=== PATIENT | male | born 2000 | race Caucasian/White ===

== ENCOUNTER 2021-07-11 20:24 | Emergency (ER) | payer MEDICAID, SELFPAY ==
[2021-07-11 20:41] VITALS: BP 126/92; PULSE 87; RESP 14; TEMP 36.9; O2SAT 94; BMI 34.9
--- NOTE | 2021-07-11 21:16 | W.ED.GENADLT ---
HPI - General Adult General: Chief complaint: Psychiatric Symptoms Stated complaint: mental eval/ stress eval Time Seen by Provider: 07/11/21 20:34 History of Present Illness: HPI: [20]yo patient w/ hx of depression BIBA auditory hallucinations. Patient tells me that he has been hearing voices ever since that he has not been taking his aripiprazole injection. Patient tells me due to insurance reasons he is has been unable to take the injections. He is in the process of reobtaining the medicine. Earlier today, patient reports auditory hallucination and voices telling him to harm other people. He tells me that he is coherent and he would not act on the voices. On arrival, the patient is AAOx3 and cooperative with my evaluation. No focal complaints of chest pain, shortness of breath, palpitations, N/V, focal GI/ complaints. Currently denies SI/HI. Onset: acute Duration: ongoing Location: home Severity: moderate Associated symptoms: Deny chest pain, dyspnea, nausea, rash, palpitations or vomiting Review of Systems Const: Denies: fever(s) or chills Eyes: Denies: change in vision ENMT: Denies: mouth pain Card: Denies: chest pain or palpitations Resp: Denies: dyspnea or non-productive cough GI: Denies: abdominal pain, nausea, vomiting or diarrhea : Denies: dysuria Musc: Denies: extremity pain Skin/Breast: Denies: rash or new lesions Neuro: Denies: weakness in extremities Psych: Reports: auditory hallucinations Milton/Lymph: Denies: easy bruising PFSH ED PFSH: Medical History Psychiatric care Schizophrenia Social History Smoking and tobacco status: never smoked Alcohol intake: never Substance/Drug Use: never Physical Exam Const: COMMON NORMALS: alert HENMT: COMMON NORMALS: atraumatic HEAD & SCALP: atraumatic MOUTH: moist mucous membranes not abnormal Eye: COMMON NORMALS: EOMs intact bilaterally and conjunctivae normal CONJUNCTIVA: Yes conjunctivae normal Neck/C-Spine: COMMON NORMALS: full ROM and supple Resp: COMMON NORMALS: normal respiratory effort and clear to auscultation bilaterally AUSCULTATION: clear to auscultation bilaterally Cardio: COMMON NORMALS: regular rate RATE: regular rate GI: COMMON NORMALS: Soft to palpation and non-tender PALPATION: Yes Soft to palpation Extremity: COMMON NORMALS: full ROM Neuro: SENSORIUM/ORIENTATION: Yes alert MOTOR EXAM: No Abnormal motor strength present and Other motor observations present (no focal motor deficits) Psych: COMMON NORMALS: speech normal SPEECH: Yes normal speech MOOD & AFFECT: Yes euthymic mood Course Vital Signs: Vital signs: Vital Signs Temperature 98.4 F 07/11/21 20:41 Pulse Rate 87 07/11/21 20:41 Respiratory Rate 14 07/11/21 20:41 Blood Pressure 126/92 07/11/21 20:41 Pulse Oximetry 94 07/11/21 20:41 MDM - General Adult Medical Decision Making [20]yo patient w/ hx of schizophrenia not on medication, autism spectrum disorder presenting for auditory hallucination. HDS, exam within normal limit Thoughts are linear and organized, and the patient has no VH, SI, or HI. Clinically the patient displays no overt toxidrome; they are well appearing, with low suspicion for toxic ingestion given history and exam. Symptoms unlikely 2/2 anemia, hypothyroidism, infection, or ICH. Workup: CBC, CMP, Lipase, salicylate/tylenol, UDS Lab findings: wnl [10:00pm] On reassessment, labs and workup wnl. Patient is hemodynamically stable with no acute medical complaints. Case discussed with psychiatric provider Dr. Dumont at [facility] psych inpatient who evaluated patient via telepsych and recommended discharge with close follow-up. Dr. Cervantes recommended giving 400mg of IM apripazole prior to discharge I have given patient follow up with our field nurse case manager to be seen by our outpatient behavioral health center for further evaluation of auditory hallucination. Patient aware of a call from our field nurse case manager to schedule for appointment(s) and verbalizes understanding of the importance of following up. Disposition: Discharge. Patient counseled regarding diagnostic impression, treatment plan. Patient given ED strict return precautions to return for continuation, worsening, or development of new symptoms. Instructed to f/u w/ [facility] regarding symptoms today. Patient verbalized understanding. Lab Data : 07/11/21 21:15 07/11/21 21:15 Laboratory Results WBC 7.7 10^3/uL (4.0-10.0) 07/11/21 21:15 RBC 5.16 10^6/uL (4.1-5.3) 07/11/21 21:15 Hgb 15.7 g/dL (11.7-16.6) 07/11/21 21:15 Hct 46.2 % (42.0-52.0) 07/11/21 21:15 MCV 89.5 fl (80-94) 07/11/21 21:15 MCH 30.4 pg (28.0-34.0) 07/11/21 21:15 MCHC 34.0 g/dL (30.0-36.0) 07/11/21 21:15 RDW 12.7 % (12.1-15.1) 07/11/21 21:15 Plt Count 199 10^3/cmm (130-400) 07/11/21 21:15 MPV 10.9 fL (7.4-10.4) H 07/11/21 21:15 Neut % (Auto) 53.1 % 07/11/21 21:15 Lymph % (Auto) 35.6 % 07/11/21 21:15 Tillman % (Auto) 9.4 % 07/11/21 21:15 Eos % (Auto) 1.2 % 07/11/21 21:15 Baso % (Auto) 0.4 % 07/11/21 21:15 Neut # (Auto) 4.11 10^3/uL (1.8-7.7) 07/11/21 21:15 Lymph # (Auto) 2.8 10^3/uL (0.8-4.8) 07/11/21 21:15 Tillman # (Auto) 0.7 10^3/uL (0.2-0.9) 07/11/21 21:15 Eos # (Auto) 0.1 10^3/uL (0.0-0.8) 07/11/21 21:15 Baso # (Auto) 0.0 10^3/uL (0.0-0.1) 07/11/21 21:15 Nucleated RBC % (auto) 0 % 07/11/21 21:15 Nucleated RBCs # 0.0 /100WBC 07/11/21 21:15 Sodium 138 mmol/L (136-145) 07/11/21 21:15 Potassium 3.9 mmol/L (3.5-5.1) 07/11/21 21:15 Chloride 100 mmol/L (98-107) 07/11/21 21:15 Carbon Dioxide 26 mmol/L (22-29) 07/11/21 21:15 Anion Gap 15.9 (5-19) 07/11/21 21:15 BUN 10 mg/dL (6-20) 07/11/21 21:15 Creatinine 0.9 mg/dL (0.7-1.2) 07/11/21 21:15 GFR Calculation 106.5 mL/min (90-130) 07/11/21 21:15 Glucose 77 mg/dL (65-115) 07/11/21 21:15 Calculated Osmolality 284 mOsm/kg (285-295) L 07/11/21 21:15 Calcium 9.6 mg/dL (8.5-10.5) 07/11/21 21:15 Total Bilirubin 0.5 mg/dL (0.15-1.2) 07/11/21 21:15 AST 14 U/L (0-40) 07/11/21 21:15 ALT 21 U/L (0-41) 07/11/21 21:15 Alkaline Phosphatase 101 IU/L (40-130) 07/11/21 21:15 Total Protein 7.8 g/dL (6.6-8.7) 07/11/21 21:15 Albumin 4.7 g/dL (3.5-5.2) 07/11/21 21:15 Globulin 3.1 g/dL (1.3-4.6) 07/11/21 21:15 Lipase 18 U/L (13-60) 07/11/21 21:15 Salicylates < 0.3 mg/dL (3-10) L 07/11/21 21:15 Urine Opiates Screen Negative ng/mL (Negative) 07/11/21 21:35 Acetaminophen < 5.0 ug/mL (10-30) L 07/11/21 21:15 Ur Barbiturates Screen Negative ng/mL (Negative) 07/11/21 21:35 Ur Phencyclidine Scrn Negative ng/mL (Negative) 07/11/21 21:35 Ur Amphetamines Screen Negative ng/mL (Negative) 07/11/21 21:35 U Benzodiazepines Scrn Negative ng/mL (Negative) 07/11/21 21:35 Urine Cocaine Screen Negative ng/mL (Negative) 07/11/21 21:35 U Marijuana (THC) Screen Negative ng/mL (Negative) 07/11/21 21:35 Discharge Plan Discharge Patient Disposition: Home Clinical Impression: Auditory hallucination Condition: Stable Discharge Orders: Discharge ED (Routine); Ordered 07/11/21 Ordered By: Deena Diaz Discharge Diet: Advance as tolerated Discharge Activity: Increase activity as tolerated Activity Restrictions/Additional Instructions: Please come back to the emergency room if you need help, have any hallucinations, or you have any depression or have thoughts about hurting yourself or other people. Our field nurse case manager will have you [facility] with [facility] in the next few days. You would be expected to have a phone call with our field nurse case manager who will put you on the schedule. You can expect a call from us in the next 2-3 days. If you don't hear from us, call us back in the emergency room at [phone]. Coding Level of Care Code ED Technology Administrator for Leonarda Fwlata Exam Comprehensive
[2021-07-11 21:26] LABS: Basophils % 0.4 %; Eosinophils # 0.1 10^3/uL (0.0-0.8); Eosinophils % 1.2 %; Hematocrit 46.2 % (42.0-52.0); Hemoglobin 15.7 g/dL (11.7-16.6); Lymphocytes # 2.8 10^3/uL (0.8-4.8); Lymphocytes % 35.6 %; Mean Corpuscular Hemoglobin 30.4 pg (28.0-34.0); Mean Corpuscular Volume 89.5 fl (80-94); Mean Platelet Volume 10.9 fL (7.4-10.4); Monocytes # 0.7 10^3/uL (0.2-0.9); Monocytes % 9.4 %; Neutrophils # 4.11 10^3/uL (1.8-7.7); Neutrophils % 53.1 %; Nucleated Red Blood Cells % 0 %; Platelet Count 199 10^3/cmm (130-400); Red Blood Count 5.16 10^6/uL (4.1-5.3); Red Cell Distribution Width 12.7 % (12.1-15.1); White Blood Count 7.7 10^3/uL (4.0-10.0)
[2021-07-11 21:48] LABS: Alanine Aminotransferase 21 U/L (0-41); Albumin Level 4.7 g/dL (3.5-5.2); Alkaline Phosphatase 101 IU/L (40-130); Anion Gap 15.9 (5-19); Aspartate Amino Transferase 14 U/L (0-40); Blood Urea Nitrogen 10 mg/dL (6-20); Calcium 9.6 mg/dL (8.5-10.5); Carbon Dioxide 26 mmol/L (22-29); Chloride 100 mmol/L (98-107); Creatinine Clr Calc Pharmacy 152.0012; Globulin 3.1 g/dL (1.3-4.6); Glomerular Filtration Rate 106.5 mL/min (90-130); Glucose 77 mg/dL (65-115); Lipase 18 U/L (13-60); Osmolality Calculated 284 mOsm/kg (285-295); Potassium 3.9 mmol/L (3.5-5.1); Sodium 138 mmol/L (136-145); Total Bilirubin 0.5 mg/dL (0.15-1.2); Total Protein 7.8 g/dL (6.6-8.7)
[2021-07-11 21:50] LABS: Amphetamines Screen Urine Negative (Negative); Barbiturates Screen Urine Negative (Negative); Benzodiazepines Screen Urine Negative (Negative); Cocaine Screen Urine Negative (Negative); Opiate Screen Urine Negative (Negative); PCP Screen Urine Negative (Negative); THC Screen Urine Negative (Negative)
[2021-07-11 21:52] LABS: Acetaminophen < 5.0 ug/mL (10-30); Salicylate < 0.3 mg/dL (3-10)
[2021-07-11] MEDS: ARIPiprazole Maintena 400 MG IM (22:26)
[2021-07-11 22:33] VITALS: BP 125/87; PULSE 96; RESP 13; O2SAT 95
[2021-07-11 22:57] VITALS: BP 128/78; PULSE 88; RESP 18; O2SAT 98
--- NOTE | 2021-07-19 14:04 | DCPLANNER ---
fast food manager had message to speak with patient about getting an injection at [facility] [place]. fast food manager called patient, unable to speak with patient at this time.
== END 2021-07-11 22:58 | disposition home or self-care (01) ==
PROVIDERS: Emergency Provider Emergency Medicine
DX: R44.0 Auditory hallucinations (principal)
CPT/HCPCS: 80053; 80306; 80307; 83690; 85025; 96372; 99283

== ENCOUNTER 2021-08-28 13:45 | Emergency (ER) | payer MEDICAID, SELFPAY ==
[2021-08-28 13:52] VITALS: BP 136/87; PULSE 114; RESP 18; TEMP 35.6; O2SAT 96; BMI 27.3
--- NOTE | 2021-08-28 14:30 | ED.C_ITS ---
HPI - Psych General: Chief Complaint: Psychiatric Symptoms Stated Complaint: autistic mood swings Time Seen by Provider: 08/28/21 14:24 History of Present Illness: 21-year-old presents due to needing a mood stabilizer . Patient states he is not suicidal homicidal. States he is norm ally on a mood stabilizer and he needs a shot of it however he does not know the name of the medication or what dose she gets. There is no recorded psychoactive substance in the chart. Patient states he is able to care for himself but is unsure who he normally follows up with. Review of Systems Narrative: - CONSTITUTIONAL: Denies weight loss, fever and chills. - HEENT: Denies changes in vision and hearing. - RESPIRATORY: Denies SOB and cough. - CV: Denies palpitations and CP. - GI: Denies abdominal pain, nausea, vomiting and diarrhea. - : Denies dysuria and urinary frequency. - MSK: Denies myalgia and joint pain. - SKIN: Denies rash and pruritus. - NEUROLOGICAL: Denies headache, weakness, numbness and syncope. - PSYCHIATRIC: Denies suicidal ideation PFS ED PFSH: Medical History Psychiatric care Schizophrenia Social History Smoking and tobacco status: never smoked Alcohol intake: never Physical Exam Narrative: EXAM NARRATIVE: - GENERAL: Alert and oriented x 3. No acute distress. Well-nourished. - EYES: EOMI. Anicteric. - HENT: Atraumatic, no C-spine tenderness. Moist mucous membranes. No scleral icterus. No cervical lymphadenopathy. - LUNGS: Clear to auscultation bilaterally. No accessory muscle use. Equal lung sounds bilaterally. No respiratory distress. - CARDIOVASCULAR: Regular rate and rhythm. No murmur. No JVD. - ABDOMEN: Soft, non-tender and non-distended. Negative CVA tenderness bilaterally, no rebound or guarding, negative Foster sign. No palpable masses. - EXTREMITIES: No edema. Non-tender. - SKIN: No rashes or lesions. Warm. - NEUROLOGIC: No meningismus or focal neurological deficits. CN II-XII grossly intact. - PSYCHIATRIC: Cooperative. Appropriate mood and affect. Course Vital Signs: Vital signs: Vital Signs Temperature 96.1 F L 08/28/21 13:52 Pulse Rate 114 H 08/28/21 13:52 Respiratory Rate 18 08/28/21 13:52 Blood Pressure 136/87 08/28/21 13:52 Pulse Oximetry 96 08/28/21 13:52 [facility] - Psych Medical Decision Making Seen [id number] presents with stabilizer injection. Initially patient does not remember what he is on. Further review of chart does reveal that he was previously given aripiprazole 400 mg IM. This was provided to him today. Hadley nt denies any suicidal homicidal ideation. At this time do not believe he would be a danger to himself or others. At this time I believe patient would be safe for discharge and outpatient follow-up. Return precautions provided. Plan was reviewed with the patient who expressed understanding. Questions answered. Patient will follow up with PCP. Patient discharged in stable condition. Discharge Plan Discharge Patient Disposition: Home Clinical Impression: Mood disorder Condition: Stable Prescriptions: No Action azithromycin 250 mg tablet See Rx Instructions PO .COMPLEX Qty: 6 0RF Rx Instructions: take 500 mg today (day 1), then 250 mg for 4 days (days 2-5) PO methylprednisolone [Medrol (Mack)] 4 mg tablets,dose pack See Rx Instructions PO PER PKG DIR Qty: 21 0RF Rx Instructions: PO PER PKG DIR Discharge Orders: Discharge ED (Routine); Ordered 08/28/21 Ordered By: Herbert Wang Referrals: Devin Dumont MD [Physician] - 1-3 days Patient Instructions: Mood Disorders (ED), Opioid Safety Coding Level of Care Code ED Director Of Intercollegiate Athletics for Leonarda Kumar
--- NOTE | 2021-08-28 15:30 | PC.NURSE ---
Patient here for his monthly mood injection per patient, denies any other needs or concerns.
[2021-08-28] MEDS: ARIPiprazole Maintena 400 MG IM (15:49)
[2021-08-28 16:02] VITALS: RESP 18
== END 2021-08-28 16:03 | disposition home or self-care (01) ==
PROVIDERS: Emergency Provider Emergency Medicine
DX: F39 Unspecified mood [affective] disorder (principal)
CPT/HCPCS: 96372; 99284

== ENCOUNTER 2021-10-04 00:13 | Emergency (ER) | payer MEDICAID, SELFPAY ==
[2021-10-04 00:51] VITALS: BP 127/68; PULSE 108; RESP 20; TEMP 37; O2SAT 97; BMI 33.3
--- NOTE | 2021-10-04 00:55 | ED_ITS ---
HPI - General Adult General: Chief complaint: General Medical Stated complaint: Needs Medicine PFSH ED PFSH: Medical History Psychiatric care Schizophrenia Social History Smoking and tobacco status: never smoked Alcohol intake: never Course Vital Signs: Vital signs: Vital Signs Temperature 98.6 F 10/04/21 00:51 Pulse Rate 108 H 10/04/21 00:51 Respiratory Rate 20 H 10/04/21 00:51 Blood Pressure 127/68 10/04/21 00:51 Pulse Oximetry 97 10/04/21 00:51 Oxygen Delivery Me thod 10/04/21 00:51 Discharge Plan Discharge Condition: Stable Prescriptions: No Action azithromycin 250 mg tablet See Rx Instructions PO .COMPLEX Qty: 6 0RF Rx Instructions: take 500 mg today (day 1), then 250 mg for 4 days (days 2-5) PO methylprednisolone [Medrol (Mack)] 4 mg tablets,dose pack See Rx Instructions PO PER PKG DIR Qty: 21 0RF Rx Instructions: PO PER PKG DIR Coding Level of Care Code ED Lead Designer for Chg José
--- NOTE | 2021-10-04 01:04 | W.ED.GENADLT ---
HPI - General Adult General: Chief complaint: General Medical Stated complaint: Needs Medicine Time Seen by Provider: 10/04/21 01:04 History of Present Illness: 22-year-old male patient comes in today needing a injection of aripiprazole injection for the treatment of autism and schizophrenia. Patient denies any suicidal or homicidal thoughts. Patient is cooperative. Review of Systems General: Reports: 10 or more systems reviewed and unremarkable except in HPI and below PFSH ED PFSH: Medical History Psychiatric care Schizophrenia Social History Smoking and tobacco status: never smoked Alcohol intake: never Physical Exam Const: COMMON NORMALS: alert HENMT: COMMON NORMALS: normocephalic HEAD & SCALP: normocephalic Resp: COMMON NORMALS: normal respiratory effort Cardio: COMMON NORMALS: regular rate RATE: regular rate Extremity: COMMON NORMALS: normal to inspection Neuro: SENSORIUM/ORIENTATION: Yes alert Skin: COMMON NORMALS: no rashes or lesions noted GENERAL SKIN EXAM: no rashes or lesions noted Course Vital Signs: Vital signs: Vital Signs Temperature 98.6 F 10/04/21 00:51 Pulse Rate 89 10/04/21 01:25 Respiratory Rate 18 10/04/21 01:25 Blood Pressure 128/88 10/04/21 01:25 Pulse Oximetry 98 10/04/21 01:25 Oxygen Delivery Me thod 10/04/21 00:51 MDM - General Adult Medical Decision Making 21-year-old male patient comes in today for injection of his IM Abilify Maintena. Patient had gotten it the last 2 months in the emergency department. Patient is awaiting Medicaid and is unable to get it by other measures. Patient appears nontoxic. Patient appears in no pain. Differential diagnosis includes but not limited to schizophrenia, schizotypal disorder, autism. We are unable to continue with the Abilify injection in the ER per pharmacy restrictions. We have given him 20 mg of Geodon IM and recommended follow-up with web content & social media manager in the morning to discuss other options. Patient and his family both reported understanding. Discharge Plan Discharge Patient Disposition: Home Clinical Impression: Autism disorder Schizophrenia Qualifiers: Schizophrenia type: unspecified Qualified Code(s): F20.9 - Schizophrenia, unspecified Condition: Stable Prescriptions: No Action azithromycin 250 mg tablet See Rx Instructions PO .COMPLEX Qty: 6 0RF Rx Instructions: take 500 mg today (day 1), then 250 mg for 4 days (days 2-5) PO methylprednisolone [Medrol (Mack)] 4 mg tablets,dose pack See Rx Instructions PO PER PKG DIR Qty: 21 0RF Rx Instructions: PO PER PKG DIR Discharge Orders: Discharge ED (Routine); Ordered 10/04/21 Ordered By: Jeff Turner Discharge Activity: Increase activity as tolerated Activity Restrictions/Additional Instructions: Follow-up with primary care regarding other medication options or return in the morning to discuss further with web content & social media manager. Coding Level of Care Code ED Pipe [employer] for Leonarda Kumar
[2021-10-04] MEDS: ziprasidone 20 mg/mL SDV IM (01:12)
[2021-10-04 01:25] VITALS: BP 128/88; PULSE 89; RESP 18; O2SAT 98
--- NOTE | 2021-10-07 09:33 | DCPLANNER ---
mechanical manager had message to help patient with his medications. mechanical manager called phone number [phone], unable to speak with patient at this time, a voicemail was left for patient to return clinical case manager phone call.
== END 2021-10-04 01:26 | disposition home or self-care (01) ==
PROVIDERS: Emergency Provider Nurse Practitioner Family
DX: F84.0 Autistic disorder (principal); F20.9 Schizophrenia, unspecified
CPT/HCPCS: 96372; 99284; J3486

== ENCOUNTER 2021-11-18 18:30 | Emergency (ER) | payer MEDICAID, SELFPAY ==
[2021-11-18 18:36] VITALS: BP 130/87; PULSE 91; RESP 16; TEMP 36.9; O2SAT 98; BMI 32.6
--- NOTE | 2021-11-18 19:01 | ED_ITS ---
HPI - General Adult General: Chief complaint: General Medical Stated complaint: anger issues Time Seen by Provider: 11/18/21 19:00 History of Present Illness: 21-year-old male patient comes in today with increase in anger. Patient has autism and has issues with anger reaction. Patient reports the loss of his mother has increased some distress. Patient lives now with his father. Patient was started on Abilify Maintena which is a long-acting antipsychotic. Patient had received this in the emergency room 1 or 2 times but this facility will not allow it to be given out of the ER due to reimbursement. Patient comes in today due to increased anger requesting injection of Geodon which was given last time. Patient denies any homicidal or suicidal thoughts. Patient just reports difficulty controlling his anger. Review of Systems Psych: Reports: mood swings and irritability [facility] ED PFSH: Medical History Psychiatric care Schizophrenia Social History Smoking and tobacco status: never smoked Alcohol intake: never Physical Exam Const: COMMON NORMALS: alert HENMT: COMMON NORMALS: normocephalic HEAD & SCALP: normocephalic Neck/C-Spine: COMMON NORMALS: full ROM Resp: COMMON NORMALS: normal respiratory effort Extremity: COMMON NORMALS: normal to inspection Neuro: SENSORIUM/ORIENTATION: Yes alert Skin: COMMON NORMALS: no rashes or lesions noted GENERAL SKIN EXAM: no rashes or lesions noted Course Vital Signs: Vital signs: Vital Signs Temperature 98.4 F 11/18/21 19:17 Pulse Rate 88 11/18/21 19:17 Respiratory Rate 15 11/18/21 19:17 Blood Pressure 117/79 11/18/21 19:17 Pulse Oximetry 98 11/18/21 19:17 Oxygen Delivery Me thod 11/18/21 18:36 MDM - General Adult Medical Decision Making 21-year-old male patient comes in today for complaints of increased irritability and anger. Patient has autism spectrum disorder. On exam patient appears alert and oriented. Patient responds appropriately to questions. Patient admits to increased irritability and outbursts. Patient is requesting injection that he got last time to help control his outbursts up until he can get into his behavioral health intensive care unit registered nurse. Differential diagnosis includes adjustment disorder, autism spectrum disorder, schizotypal personality disorder, schizophrenia. Patient was given 20 mg of Geodon IM with recommendations to follow-up with primary care for further treatment. Patient reported understanding and agreed to plan. Discharge Plan Discharge Patient Disposition: Home Clinical Impression: Autism, Anger reaction Condition: Stable Prescriptions: No Action azithromycin 250 mg tablet See Rx Instructions PO .COMPLEX Qty: 6 0RF Rx Instructions: take 500 mg today (day 1), then 250 mg for 4 days (days 2-5) PO methylprednisolone [Medrol (Mack)] 4 mg tablets,dose pack See Rx Instructions PO PER PKG DIR Qty: 21 0RF Rx Instructions: PO PER PKG DIR Discharge Orders: Discharge ED (Routine); Ordered 11/18/21 Ordered By: Jeff Turner Patient Instructions: Autism Spectrum Disorder (DC) Activity Restrictions/Additional Instructions: Follow-up with primary care or behavioral health for further treatment and medications. Return to ER for worsening symptoms or new concerns. Coding Level of Care Code ED Speed Operator for Leonarda Kumar
[2021-11-18] MEDS: ziprasidone 20 mg/mL SDV IM (19:12)
[2021-11-18 19:17] VITALS: BP 117/79; PULSE 88; RESP 15; TEMP 36.9; O2SAT 98
== END 2021-11-18 19:36 | disposition home or self-care (01) ==
PROVIDERS: Emergency Provider Nurse Practitioner Family
DX: R45.4 Irritability and anger (principal); F84.0 Autistic disorder
CPT/HCPCS: 96372; 99284; J3486

== ENCOUNTER 2021-11-23 18:41 | Emergency (ER) | payer MEDICAID, SELFPAY ==
[2021-11-23 18:58] VITALS: BP 140/80; PULSE 111; RESP 16; TEMP 36.9; O2SAT 94; BMI 34.2
--- NOTE | 2021-11-23 19:34 | ED_ITS ---
HPI - General Adult General: Chief complaint: General Medical Stated complaint: Anger Issures Time Seen by Provider: 11/23/21 19:27 Source: patient Mode of arrival: ambulatory Limitations: no limitations History of Present Illness: 21-year-old male states that he has schizophrenia along with some anger issues he supposed to be on a Abilify shot has not gotten follow-up he is seen here 3 days ago giving Geodon is requesting another Geodon he denies any suicidal or homicidal ideations denies any worsening improving factors. Associated symptoms: Deny chest pain, dyspnea, headache(s), nausea, rash or vomiting Review of Systems Const: Denies: fever(s), chills, body aches or change in appetite Eyes: Denies: blurry vision or eye discomfort ENMT: Denies: throat pain or dental pain Card: Denies: chest pain Resp: Denies: dyspnea GI: Denies: abdominal pain, nausea, vomiting or diarrhea : Denies: dysuria Musc: Denies: neck pain or back pain Skin/Breast: Denies: rash Neuro: Denies: headache(s) Psych: Denies: depression Milton/Lymph: Denies: easy bruising All/Imm: Denies: urticaria PFSH ED PFSH: Medical History Psychiatric care Schizophrenia Social History Smoking and tobacco status: never smoked Alcohol intake: never Physical Exam Const: COMMON NORMALS: no acute distress, patient oriented x3 and healthy appearing HENMT: COMMON NORMALS: normocephalic and atraumatic HEAD & SCALP: normocephalic and atraumatic Eye: COMMON NORMALS: Equal, round and reactive pupils present and EOMs intact bilaterally PUPIL: Yes Equal, round and reactive pupils present Neck/C-Spine: COMMON NORMALS: full ROM and supple Chest: COMMONS NORMALS: normal inspection of the chest and normal palpation of entire chest wall Resp: COMMON NORMALS: normal respiratory effort, No retractions, No use of accessory muscles and clear to auscultation bilaterally AUSCULTATION: clear to auscultation bilaterally Cardio: COMMON NORMALS: regular rate, regular rhythm and No murmurs present (Cardio) RATE: regular rate RHYTHM: regular rhythm GI: COMMON NORMALS: Normal to inspection, nondistended, normoactive bowel sounds present, Soft to palpation, non-tender and no masses PALPATION: Yes Soft to palpation Extremity: COMMON NORMALS: normal to inspection and full ROM Neuro: COMMON NORMALS: patient oriented x3, moves all extremities and no focal motor deficits Psych: COMMON NORMALS: mental status grossly normal, Normal thought process present and cooperative THOUGHT PROCESS: Normal thought process present Skin: COMMON NORMALS: no rashes or lesions noted and no wounds GENERAL SKIN EXAM: no rashes or lesions noted Course Vital Signs: Vital signs: Vital Signs Temperature 98.5 F 11/23/21 18:58 Pulse Rate 111 H 11/23/21 18:58 Respiratory Rate 16 11/23/21 18:58 Blood Pressure 140/80 11/23/21 18:58 Pulse Oximetry 94 11/23/21 18:58 Oxygen Delivery Me thod 11/23/21 18:58 MDM - General Adult Medical Decision Making Patient presents here with anger outbursts he is not suicidal not homicidal we will give him a Geodon get him follow-up with [facility] he is stable for discharge. Discharge Plan Discharge Patient Disposition: Home Clinical Impression: Anger reaction Condition: Stable Prescriptions: No Action azithromycin 250 mg tablet See Rx Instructions PO .COMPLEX Qty: 6 0RF Rx Instructions: take 500 mg today (day 1), then 250 mg for 4 days (days 2-5) PO methylprednisolone [Medrol (Mack)] 4 mg tablets,dose pack See Rx Instructions PO PER PKG DIR Qty: 21 0RF Rx Instructions: PO PER PKG DIR Discharge Orders: Discharge ED (Routine); Ordered 11/23/21 Ordered By: Nichole Brice Discharge Diet: Advance as tolerated Discharge Activity: Resume usual activity Coding Level of Care Code ED Breaker Unit Assembler for Chg Fwd Exam Comprehensive
[2021-11-23] MEDS: ziprasidone 20 mg/mL SDV IM (19:54)
--- NOTE | 2021-11-24 09:27 | DCPLANNER ---
Addendum entered by Maria Antonia Storey 11/24/21 11:44: senior care manager received the following message from Dilcia at [facility] regarding follow up appointment: I spoke to Larn and mom yesterday and he is coming in for walk in. Original Note: senior care manager had message to schedule a follow up appointment for patient with [facility]. senior care manager sent patients information to Dilcia Henderson at [facility], quality assurance coordinator. Patients information will be printed and reviewed. Clinic will call patient with appointment information.
== END 2021-11-23 20:37 | disposition home or self-care (01) ==
PROVIDERS: Emergency Provider Emergency Medicine
DX: R45.4 Irritability and anger (principal)
CPT/HCPCS: 96372; 99284; J3486

== ENCOUNTER 2022-02-17 20:45 | Inpatient (IN) | payer MEDICAID, SELFPAY ==
[2022-02-17 20:46] VITALS: BP 143/81; PULSE 108; RESP 20; TEMP 36.8; O2SAT 98; BMI 32.3
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
[2022-02-17 21:32] LABS: Basophils % 0.6 %; Eosinophils # 0.1 10^3/uL (0.0-0.8); Hemoglobin 16.2 g/dL (11.7-16.6); Lymphocytes # 2.1 10^3/uL (0.8-4.8); Lymphocytes % 29.7 %; Mean Corpuscular HGB Conc 34.5 g/dL (30.0-36.0); Mean Corpuscular Hemoglobin 31.3 pg (28.0-34.0); Mean Corpuscular Volume 90.7 fl (80-94); Mean Platelet Volume 10.2 fL (7.4-10.4); Monocytes # 0.4 10^3/uL (0.2-0.9); Monocytes % 5.8 %; Neutrophils % 62.6 %; Nucleated Red Blood Cells % 0 %; Platelet Count 213 10^3/cmm (130-400); Red Blood Count 5.18 10^6/uL (4.1-5.3); Red Cell Distribution Width 12.4 % (12.1-15.1)
[2022-02-17 21:45] LABS: Amphetamines Screen Urine Negative (Negative); Barbiturates Screen Urine Negative (Negative); Benzodiazepines Screen Urine Negative (Negative); Cocaine Screen Urine Negative (Negative); Opiate Screen Urine Negative (Negative); PCP Screen Urine Negative (Negative); THC Screen Urine Negative (Negative)
[2022-02-17 21:52] LABS: Alanine Aminotransferase 27 U/L (0-41); Albumin Level 4.6 g/dL (3.5-5.2); Alcohol Level 63 mg/dL (0-10); Alkaline Phosphatase 119 U/L (40-130); Anion Gap 16.6 (5-19); Aspartate Amino Transferase 22 U/L (0-40); Blood Urea Nitrogen 9 mg/dL (6-20); Calcium 9.5 mg/dL (8.5-10.5); Carbon Dioxide 27 mmol/L (22-29); Chloride 104 mmol/L (98-107); Glomerular Filtration Rate 83.7 mL/min (90-130); Glucose 94 mg/dL (65-115); Osmolality Calculated 296 mOsm/kg (285-295); Potassium 3.6 mmol/L (3.5-5.1); Sodium 144 mmol/L (136-145); Total Bilirubin 0.3 mg/dL (0.15-1.2); Total Protein 7.6 g/dL (6.6-8.7)
[2022-02-17 21:53] LABS: Acetaminophen < 5.0 ug/mL (10-30); Salicylate < 0.3 mg/dL (3-10)
[2022-02-17 22:32] LABS: Thyroid Stimulating Hormone 1.41 uIU/mL (0.27-4.20)
[2022-02-17 23:42] VITALS: BP 119/87; PULSE 112; RESP 17; TEMP 36.8; O2SAT 96
[2022-02-18] MEDS: acetaminophen 325 mg Tablet 650 MG PO ×2 (09:00→19:46)
[2022-02-18 14:00] VITALS: RESP 18
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
[2022-02-18] MEDS: ibuprofen 600 mg Tablet PO (18:10)
[2022-02-18] MEDS: paliperidone ER 3 mg Tablet PO (19:46)
[2022-02-18 20:27] VITALS: BP 118/83; PULSE 78; RESP 16; TEMP 37; O2SAT 99
[2022-02-19 06:00] VITALS: RESP 18
[2022-02-19 14:00] VITALS: BP 109/69; PULSE 122; RESP 16; TEMP 36.6; O2SAT 91
--- NOTE | 2022-02-19 18:35 | P.NPUPN_ITS ---
Subjective NPU Subjective: Patient attended today reporting that he is feeling better now that he had Dr. Espinosa and started the medication and that he was no longer having hallucinations. He denied having difficulties or negative thoughts about his father. He denied any side effects to the medication. He reports his father identifies that he is doing better as well. We agreed to reach out to dad to talk about discharge planning. Mental Status Exam MSE Comments: This is an overweight was obese white male in hospital scrubs with limited grooming but adequate eye contact. No abnormal movements. Cooperative with exam in no acute distress.. His speech was decreased rate and volume with some dysarthria. Mood described as better, affect appeared euthymic. His thought process was linear logical and goal-directed. His thought content: Patient denied suicidal or homicidal ideation. He reported history of paranoia but no guardedness or signs of delusions noted, he denied auditory or visual hallucinations and he did not appear to be responding to internal stimuli. Attention and concentration appear intact and memory appeared reliable but never formally tested. His insight and judgment are impaired/limited. His impulse control was limited. Intellectual ability impaired. Vitals/I&O/Wt Last Vital Signs Temp 98.3 F 02/19/22 20:11 Pulse 108 H 02/19/22 20:11 Resp 16 02/19/22 20:11 BP 121/82 02/19/22 20:11 Pulse Ox 98 02/19/22 20:11 O2 Del Method 02/19/22 20:11 Weight last 48 hrs Weight 98.452 kg Data NPU 02/17/22 21:21 02/17/22 21:21 A&P Assessment and plan (1) Impulse control disorder: (2) Psychotic disorder with hallucinations: (3) Generalized anxiety disorder: (4) Mild cognitive impairment: Plan Candida is a 21-year-old white male with likely intellectual disability who also appears to have a history of anger outburst currently endorsing auditory hallucinations of a command nature that appear to be exacerbated by recent argument with his father. 1. Continue current medication. Started oral Invega 3 mg at night to target hallucinations. Consider SSRI to target MARY. 2. Encourage individual group and milieu therapy 3. Continue to 15-minute checks for safety 4. Recommend sober living treatment at the highest level of care to which the patient is willing to commit 5. Reach out to family to explore discharge possibilities. Involuntary Hold Information 96 Hour Hold: 96 Hour Involuntary Admission: Yes 96 Hour Hold Ending Date: 02/23/22 96 Hour Hold Ending Time: 22:17 Attestations NPU Medical Necessity Statement*: Inpatient hospitalization is medically necessary and the clinically appropriate invention at this time. We will monitor medications and make changes as indicated. Likely length of stay is 1-3 days. Coding Level of Care Code Acute Ware Carrier for Leonarda Fwd Diagnoses Impulse control disorder F63.9 Psychotic disorder with hallucinations F29 Generalized anxiety disorder F41.1 Mild cognitive impairment G31.84
[2022-02-19 20:11] VITALS: BP 121/82; PULSE 108; RESP 16; TEMP 36.8; O2SAT 98
[2022-02-19] MEDS: paliperidone ER 3 mg Tablet PO (21:11)
[2022-02-20 06:00] VITALS: RESP 18
[2022-02-20 11:59] VITALS: RESP 18
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
[2022-02-20] MEDS: paliperidone ER 3 mg Tablet PO (13:25)
== END 2022-02-20 13:36 | disposition home or self-care (01) | DRG 885 ==
LOC: ER 22:22 → NP 23:21
PROVIDERS: Emergency Medicine; Admitting Provider Psychiatry & Neurology Psychiatry; Emergency Provider Emergency Medicine; Visit Provider Psychiatry & Neurology Psychiatry
DX: F20.9 Schizophrenia, unspecified (principal); Z91.128 Patient's intentional underdosing of medication regimen for other reason; Z88.0 Allergy status to penicillin; F63.9 Impulse disorder, unspecified; F41.1 Generalized anxiety disorder; G31.84 Mild cognitive impairment of uncertain or unknown etiology
CPT/HCPCS: 73552; 73590; 80053; 80306; 80307; 84443; 85025; 97150; 97165; 99285

== ENCOUNTER 2022-04-02 20:40 | Inpatient (IN) | payer MEDICAID, SELFPAY ==
[2022-04-02 20:43] VITALS: BP 129/79; PULSE 106; RESP 18; TEMP 36.8; O2SAT 96; BMI 26.5
[2022-04-02 20:51] VITALS: BP 129/79; PULSE 106; RESP 18; TEMP 36.8; O2SAT 98
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
[2022-04-02 21:39] LABS: Basophils % 0.4 %; Eosinophils # 0.1 10^3/uL (0.0-0.8); Eosinophils % 1.1 %; Hematocrit 45.5 % (42.0-52.0); Hemoglobin 15.5 g/dL (11.7-16.6); Lymphocytes # 2.1 10^3/uL (0.8-4.8); Lymphocytes % 29.5 %; Mean Corpuscular HGB Conc 34.1 g/dL (30.0-36.0); Mean Corpuscular Hemoglobin 30.6 pg (28.0-34.0); Mean Corpuscular Volume 89.9 fl (80-94); Mean Platelet Volume 11.3 fL (7.4-10.4); Monocytes # 0.5 10^3/uL (0.2-0.9); Monocytes % 6.8 %; Neutrophils # 4.38 10^3/uL (1.8-7.7); Neutrophils % 61.8 %; Nucleated Red Blood Cells % 0 %; Platelet Count 204 10^3/cmm (130-400); Red Blood Count 5.06 10^6/uL (4.1-5.3); Red Cell Distribution Width 12.4 % (12.1-15.1); White Blood Count 7.1 10^3/uL (4.0-10.0)
[2022-04-02 21:52] LABS: Alanine Aminotransferase 31 U/L (0-41); Albumin Level 4.4 g/dL (3.5-5.2); Alkaline Phosphatase 103 U/L (40-130); Aspartate Amino Transferase 18 U/L (0-40); Blood Urea Nitrogen 8 mg/dL (6-20); Calcium 9.8 mg/dL (8.5-10.5); Carbon Dioxide 21 mmol/L (22-29); Chloride 102 mmol/L (98-107); Globulin 2.2 g/dL (1.3-4.6); Glomerular Filtration Rate 83.7 mL/min (90-130); Glucose 85 mg/dL (65-115); Osmolality Calculated 288 mOsm/kg (285-295); Sodium 140 mmol/L (136-145); Total Bilirubin 0.3 mg/dL (0.15-1.2); Total Protein 6.6 g/dL (6.6-8.7)
[2022-04-02 22:07] LABS: Acetaminophen < 5.0 ug/mL (10-30); Salicylate < 0.3 mg/dL (3-10)
[2022-04-03 00:32] LABS: Add Urine Microscopic? YES; Amphetamines Screen Urine Negative (Negative); Barbiturates Screen Urine Negative (Negative); Benzodiazepines Screen Urine Negative (Negative); Bilirubin Urine Neg (Negative); Blood Urine Neg (Negative); Cocaine Screen Urine Negative (Negative); Glucose Urine UA Norm (Normal); Ketones Urine Negative (Negative); Leukocyte Esterase Urine Negative (Negative); Nitrate Urine Negative (Negative); Opiate Screen Urine Negative (Negative); PCP Screen Urine Negative (Negative); Protein Urine Trace (Negative); Specific Gravity, Urine 1.025 (1.005-1.030); THC Screen Urine Negative (Negative); Urine Appearance Clear (CLEAR); Urine Color Yellow (Yellow); Urobilinogen Urine 4 mg/dL (Negative); pH Urine 5 (5-7)
[2022-04-03 00:33] LABS: Mucus Urine 1+ /hpf; RBC Urine 0-4 /hpf (0-2); Squamous Epithelial Cell Urine 0-4 /hpf (0-5); WBC Urine 0-4 /hpf (0-5)
[2022-04-03 00:34] LABS: Add Urine Culture? No; Calcium Oxalate Crystals Urine RARE /hpf; Hyaline Casts Urine 0-4 /lpf
[2022-04-03 01:19] LABS: SARS Covid-2 Antigen negative (Negative)
--- NOTE | 2022-04-03 03:27 | ECG_ITS ---
[facility] Test Date: 2022-04-03 Pat Name: Duarte Joyce Department: Room: Gender: Male [employer]: : 2000 Requested By: Honorio Magaña Order Number: [id number] Darisuz MD: Nel Whitten M.D. Measurements Intervals [place] Rate: 78 P: 37 [place]: 154 QRS: 33 QRSD: 99 T: 76 QT: 363 QTc: 414 Interpretive Statements SINUS RHYTHM WITH SINUS ARRHYTHMIA NONSPECIFIC T-WAVE ABNORMALITY Compared to ECG 08/30/2017 22:21:37 T-wave abnormality now present Sinus tachycardia no longer present Electronically Signed On 04-03-2022 8:48:52 RADIO ENGINEER by Nel Whitten M.D. [email or web address]
[2022-04-03 03:47] LABS: Creatine Phosphokinase 176 U/L (39-308); Free T4 Free Thyroxine 1.46 ng/dL (0.82-1.77); Thyroid Stimulating Hormone 1.81 uIU/mL (0.27-4.20)
[2022-04-03 03:48] LABS: Alcohol Level < 10 mg/dL (0-10)
[2022-04-03 08:43] VITALS: BP 107/69; PULSE 94; RESP 14; O2SAT 92
[2022-04-03] MEDS: paliperidone ER 3 mg Tablet 6 MG PO (14:02)
[2022-04-04 06:00] VITALS: BP 100/62; PULSE 69; RESP 16; TEMP 36.2; O2SAT 95
[2022-04-04 10:27] VITALS: BP 107/78; PULSE 94; RESP 16; O2SAT 97
[2022-04-04 13:06] VITALS: BP 117/69; PULSE 85; RESP 17; O2SAT 94
--- NOTE | 2022-04-04 14:22 | PC.NURSE ---
REPORT CALLED TO [facility] IN NPU.
[2022-04-04 14:34] VITALS: BP 124/83; PULSE 100; RESP 18; TEMP 36.6; O2SAT 95
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
[2022-04-04 20:26] VITALS: BP 120/81; PULSE 103; RESP 16; TEMP 36.6; O2SAT 96
[2022-04-04] MEDS: paliperidone ER 3 mg Tablet PO (20:32)
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
[2022-04-05 14:00] VITALS: BP 123/78; PULSE 103; RESP 20; TEMP 36.6; O2SAT 98
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
[2022-04-05] MEDS: paliperidone ER 3 mg Tablet PO (17:59)
[2022-04-05 19:37] VITALS: BP 119/82; PULSE 97; RESP 17; TEMP 36.7; O2SAT 96
[2022-04-05] MEDS: paliperidone ER 3 mg Tablet 6 MG PO (20:55)
[2022-04-06 14:00] VITALS: BP 117/80; PULSE 109; RESP 17; TEMP 36.6; O2SAT 96
[2022-04-06] MEDS: hyDROXYzine 25 mg Capsule 50 MG PO (15:13)
--- NOTE | 2022-04-06 19:19 | W.PM.NPUPNS ---
Subjective NPU Subjective: Patient presented today reporting that he is doing fine on the increased Invega. He reported that he has been a little tired but he does not know if that is from the medication or being somewhat bored here on the unit. He has not spoken to family since he came in here and does not know what his father's position on him coming home is. We discussed working with the treatment team to possibly get him case management and to possibly consider the long-acting injectable. Mental Status Exam MSE Comments: This is an overweight white male in hospital scrubs with limited grooming but adequate eye contact. No abnormal movements except for psychomotor retardation. Cooperative with exam in no acute distress. His speech was decreased rate and volume with some dysarthria. Mood described as tired, affect appeared subdued. His thought process was linear.. His thought content: Patient denied suicidal or homicidal ideation. He reported history of paranoia but no guardedness or signs of delusions noted, he denied auditory or visual hallucinations and he did not appear to be responding to internal stimuli. Attention and concentration appear intact and memory appeared reliable but none were formally tested. His insight and judgment are limited. His impulse control was limited. Intellectual ability impaired. Vitals/I&O/Wt Last Vital Signs Temp 98.7 F 04/06/22 21:25 Pulse 100 04/06/22 21:25 Resp 16 04/06/22 21:25 BP 99/66 04/06/22 21:25 Pulse Ox 95 04/06/22 21:25 O2 Del Method 04/06/22 21:25 Data NPU 04/02/22 21:04 04/02/22 21:04 A&P Assessment and plan (1) Impulse control disorder: (2) Psychotic disorder with hallucinations: (3) Generalized anxiety disorder: (4) Mild cognitive impairment: Nitin Candida is a 21-year-old white male with likely intellectual disability who also appears to have a history of anger outburst currently endorsing auditory hallucinations of a command nature that appear to be exacerbated by recent argument with his father. 1. Continue current medication. Increased Invega to 6 mg p.o. daily. We will explore the long-acting injectable prior to discharge. 2. Encourage individual group and milieu therapy 3. Continue to 15-minute checks for safety 4. Recommend sober living treatment at the highest level of care to which the patient is willing to commit 5. Obtain collateral information from family. Involuntary Hold Information 96 Hour Hold: 96 Hour Involuntary Admission: No Attestations NPU Medical Necessity Statement*: Inpatient hospitalization is medically necessary and the clinically appropriate invention at this time. We will monitor medications and make changes as indicated. Likely length of stay is 2-4 days. Coding Level of Care Code Acute Code for [facility] Fwd Diagnoses Impulse control disorder F63.9 Psychotic disorder with hallucinations F29 Generalized anxiety disorder F41.1 Mild cognitive impairment G31.84
[2022-04-06] MEDS: paliperidone ER 3 mg Tablet 6 MG PO (21:14)
[2022-04-06 21:25] VITALS: BP 99/66; PULSE 100; RESP 16; TEMP 37.1; O2SAT 95
--- NOTE | 2022-04-07 11:52 | W.PM.NPUPNS ---
Subjective NPU Subjective: Patient presented today reporting that he had spoken to his dad and his dad talked about the possibility of him coming home tomorrow. We discussed's reaching out to his dad and finding out what kind of adherence they feel they have with the medication and exploring whether the long-acting injectable should be administered before discharge or whether the family and he think about that. We discussed the possibility of discharge tomorrow if dad is open to him returning. Mental Status Exam MSE Comments: This is an overweight white male in hospital scrubs with limited grooming but adequate eye contact. No abnormal movements except for psychomotor retardation. Cooperative with exam in no acute distress. His speech was decreased rate and volume with some dysarthria. Mood described as tired but better, affect appeared subdued. His thought process was linear.. His thought content: Patient denied suicidal or homicidal ideation. He reported history of paranoia but no guardedness or signs of delusions noted, he denied auditory or visual hallucinations and he did not appear to be responding to internal stimuli. Attention and concentration appear intact and memory appeared reliable but none were formally tested. His insight and judgment are limited. His impulse control was limited. Intellectual ability impaired. Vitals/I&O/Wt Last Vital Signs Temp 98.7 F 04/06/22 21:25 Pulse 100 04/06/22 21:25 Resp 16 04/06/22 21:25 BP 99/66 04/06/22 21:25 Pulse Ox 95 04/06/22 21:25 O2 Del Method 04/06/22 21:25 Data NPU 04/02/22 21:04 04/02/22 21:04 A&P Assessment and plan (1) Impulse control disorder: (2) Psychotic disorder with hallucinations: (3) Generalized anxiety disorder: (4) Mild cognitive impairment: Nitin Candida is a 21-year-old white male with likely intellectual disability who also appears to have a history of anger outburst currently endorsing auditory hallucinations of a command nature that appear to be exacerbated by recent argument with his father. 1. Continue current medication. Increased Invega to 6 mg p.o. daily. We will explore the long-acting injectable prior to discharge. 2. Encourage individual group and milieu therapy 3. Continue to 15-minute checks for safety 4. Recommend sober living treatment at the highest level of care to which the patient is willing to commit 5. Obtain collateral information from family. Involuntary Hold Information 96 Hour Hold: 96 Hour Involuntary Admission: Yes 96 Hour Hold Ending Date: 02/23/22 96 Hour Hold Ending Time: 22:17 Attestations NPU Medical Necessity Statement*: Inpatient hospitalization is medically necessary and the clinically appropriate invention at this time. We will monitor medications and make changes as indicated. Likely length of stay is 1-3 days. Coding Level of Care Code Acute Code for [facility] Fwd Diagnoses Impulse control disorder F63.9 Psychotic disorder with hallucinations F29 Generalized anxiety disorder F41.1 Mild cognitive impairment G31.84
[2022-04-07 14:00] VITALS: BP 119/83; PULSE 113; RESP 16; TEMP 36.6; O2SAT 96
[2022-04-07] MEDS: paliperidone ER 3 mg Tablet 6 MG PO (20:10)
[2022-04-07 21:29] VITALS: BP 111/73; PULSE 116; RESP 17; TEMP 36.9; O2SAT 96
--- NOTE | 2022-04-08 12:20 | DCPLANNER ---
late entry - community relations advisor was asked to look for psych placement for patient. fruit coordinator called and faxed patients information to the following facilities: [facility] - 004 - [facility] - won't have him - to aggressive [facility] = 42 - left voicemail [facility] - 42 - has beds - 0330 wanted more labs at 0600 faxed updated labs [facility] - 0044 - [facility] - has bed - declined at 0340 for being to aggressive [facility] - call back for bed availability [facility] - 51 - has bed - information faxed - facility declined to being aggressive [place] - to [facility] - 52 - [facility] might have bed [facility] - 0055 - [facility] might have beds - faxed information at [phone] [facility] - 0102 - has 1 bed, but need to use it for their own ER [facility] - 0057 - [facility] - has bed [facility] - will not accept due to patient being aggressive
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
[2022-04-08 14:00] VITALS: BP 119/77; PULSE 97; RESP 16; TEMP 36.5; O2SAT 95
[2022-04-08 14:13] VITALS: BP 111/73; PULSE 116; RESP 17; TEMP 36.9; O2SAT 96
--- NOTE | 2022-04-08 15:05 | PC.NURSE ---
Discharge information and medications reviewed with patient. He verbalized his understanding. Pt denied suicidal/homicidal thoughts and hallucinations at this time. He stated he felt ready to go home. When pt's father arrived to pick him up, with pt's permission, the pt's discharge information was reviewd, including his pending appointment and his medication. Questions were answered and the father verbalized his understanding. Pt left ambulatory; belongings returned.
== END 2022-04-08 15:03 | disposition home or self-care (01) | DRG 886 ==
LOC: ER 04-03 14:36 → ER IP 04-03 18:01 → NP 04-04 15:19
PROVIDERS: Emergency Medicine; Family Medicine; Admitting Provider Psychiatry & Neurology Psychiatry; Emergency Provider Family Medicine; Visit Provider Psychiatry & Neurology Psychiatry
DX: F63.9 Impulse disorder, unspecified (principal); F25.9 Schizoaffective disorder, unspecified; F41.1 Generalized anxiety disorder; G31.84 Mild cognitive impairment of uncertain or unknown etiology; F17.290 Nicotine dependence, other tobacco product, uncomplicated
CPT/HCPCS: 80053; 80306; 80307; 81001; 82550; 84439; 84443; 85025; 87426; 93005; 97150; 97165; 99238; 99285

== ENCOUNTER 2022-06-04 00:48 | Emergency (ER) | payer MEDICAID, SELFPAY ==
[2022-06-04 00:55] VITALS: BP 132/57; PULSE 117; RESP 18; TEMP 36.6; O2SAT 96; BMI 21.5
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
--- NOTE | 2022-06-09 13:55 | DCPLANNER ---
Addendum entered by Maria Antonia Storey 06/17/22 09:00: Patient had a follow up appointment scheduled with Dr. Angulo - patient did not attend appointment. Original Note: automotive sales manager called patient due to no primary care physician - patients father stated that he would like patient set up with a primary care physician. automotive sales manager called [facility], gave clinic patients information. A follow up appointment was scheduled for May at 2:[address] Angulo. automotive sales manager gave patients dad the appointment information.
== END 2022-06-04 01:10 | disposition home or self-care (01) ==
PROVIDERS: Emergency Provider Nurse Practitioner Family; PCP Family Medicine
DX: S80.812A Abrasion, left lower leg, initial encounter (principal); S00.83XA Contusion of other part of head, initial encounter; Y04.2XXA Assault by strike against or bumped into by another person, initial encounter; F17.290 Nicotine dependence, other tobacco product, uncomplicated
CPT/HCPCS: 99282

== ENCOUNTER 2022-07-23 03:05 | Emergency (ER) | payer MEDICAID, SELFPAY ==
[2022-07-23 03:26] VITALS: BP 129/83; PULSE 89; RESP 16; TEMP 36.9; O2SAT 99
--- NOTE | 2022-07-23 03:28 | ED_ITS ---
HPI - General Adult General: Chief complaint: General Medical Stated complaint: sore throat Time Seen by Provider: 07/23/22 03:09 Source: patient Mode of arrival: ambulatory Limitations: no limitations History of Present Illness: States [id number] male he noticed his uvula has been tender and sore and is enlarged. Denies any difficulty swallowing denies any fever rates pain a 2 out of 10 currently denies any sick contacts or cough. Associated symptoms: Deny chest pain, dyspnea, headache(s), nausea, rash or vomiting Review of Systems Const: Denies: fever(s), chills, body aches or change in appetite Eyes: Denies: eye discomfort ENMT: Reports: uvular edema; Denies: throat pain or dental pain Card: Denies: chest pain Resp: Denies: dyspnea GI: Denies: abdominal pain, nausea, vomiting or diarrhea Musc: Denies: neck pain or back pain Skin/Breast: Denies: rash Neuro: Denies: headache(s) PFS ED PFSH: Medical History Psychiatric care Schizophrenia Social History Smoking and tobacco status: current every day smoker e-cigarettes E-Cigarette Details: vaporizer device Alcohol intake: current Alcohol intake frequency: 0-2 Drinks per Day Alcohol type: hard liquor Substance/Drug Use: current Substance/Drug use frequency: daily Physical Exam Const: COMMON NORMALS: no acute distress, average body habitus and patient oriented x3 HENMT: COMMON NORMALS: normocephalic and atraumatic HEAD & SCALP: normocephalic and atraumatic THROAT: uvular edema OTHER: Large uvula with slight erythema no pus pockets or uvular deviation Eye: COMMON NORMALS: conjunctivae normal CONJUNCTIVA: Yes conjunctivae normal Neck/C-Spine: COMMON NORMALS: supple Chest: COMMONS NORMALS: normal inspection of the chest Resp: COMMON NORMALS: normal respiratory effort Cardio: COMMON NORMALS: regular rate RATE: regular rate GI: INSPECTION: Yes normal to inspection Extremity: COMMON NORMALS: normal to inspection Neuro: COMMON NORMALS: patient oriented x3 Psych: COMMON NORMALS: mental status grossly normal Skin: COMMON NORMALS: no rashes or lesions noted GENERAL SKIN EXAM: no rashes or lesions noted [facility] - General Adult Medical Decision Making Patient presents here with enlarged slightly inflamed uvula minimal erythema no pus pockets no uvular deviation likely mild uvulitis we will place him on anti- inflammatories give him a shot of Decadron here. Discharge Plan Discharge Patient Disposition: Home Clinical Impression: Uvulitis Condition: Stable Prescriptions: New naproxen [Naprosyn] 500 mg tablet 500 mg PO BID PRN (Reason: pain) Qty: 20 0RF No Action paliperidone 3 mg Tablet Extended Release 24 Hr 6 mg PO BEDTIME 30 Days Qty: 60 1RF Discharge Orders: Discharge ED (Routine); Ordered 07/23/22 Ordered By: Nichole Brice Referrals: Ananth Rivera MD [Primary Care Provider] - 1-3 days Discharge Diet: Advance as tolerated Discharge Activity: Resume usual activity Patient Instructions: Uvulitis (ED) Coding Level of Care Code ED Food Service Cashier for Lenoarda Kumar
[2022-07-23] MEDS: dexamethasone 10 mg/mL INJ IM (03:58)
[2022-07-23] MEDS: ketorolac 30 mg/mL INJ IM (03:58)
== END 2022-07-23 04:18 | disposition home or self-care (01) ==
PROVIDERS: Emergency Provider Emergency Medicine; PCP Family Medicine
DX: K12.2 Cellulitis and abscess of mouth (principal); F17.290 Nicotine dependence, other tobacco product, uncomplicated
CPT/HCPCS: 96372; 99284; J1100; J1885

== ENCOUNTER 2022-11-29 11:34 | Emergency (ER) | payer MEDICAID, SELFPAY ==
[2022-11-29 11:46] VITALS: BP 100/76; PULSE 126; TEMP 37.2; O2SAT 93; BMI 34.3
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
--- NOTE | 2022-11-29 12:17 | PC.PHAR ---
pt states he takes no medications-[facility] states they havent filled medications for the pt since mar 2022 and [facility] states they last filled feb 2022-[facility] states they have abilify 5mg daily on hold from 08/08/22-pt states he states he cant take pills he can only take shots pt states he is not getting any kind of shots either
[2022-11-29] MEDS: eye irrigation 30 mL Btl 1000 DROP EYE-BOTH (12:22)
[2022-11-29 12:51] VITALS: BP 100/76; PULSE 101; RESP 18; TEMP 37.2; O2SAT 93
== END 2022-11-29 12:53 | disposition home or self-care (01) ==
PROVIDERS: Emergency Provider Internal Medicine; PCP Family Medicine
DX: F63.9 Impulse disorder, unspecified (principal); F17.290 Nicotine dependence, other tobacco product, uncomplicated
CPT/HCPCS: 99283

== ENCOUNTER 2022-12-01 07:02 | Emergency (ER) | payer MEDICAID, SELFPAY ==
[2022-12-01 07:02] VITALS: BP 132/91; PULSE 106; RESP 14; TEMP 37.2; O2SAT 97; BMI 34.3
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
[2022-12-01 07:46] LABS: Basophils # 0.1 10^3/uL (0.0-0.1); Basophils % 0.6 %; Eosinophils # 0.1 10^3/uL (0.0-0.8); Eosinophils % 1.5 %; Hematocrit 44.5 % (37-53); Lymphocytes # 1.5 10^3/uL (0.8-4.8); Lymphocytes % 17.7 %; Mean Corpuscular HGB Conc 35.5 g/dL (30-55); Mean Corpuscular Hemoglobin 32.1 pg (27-33); Mean Corpuscular Volume 90.4 fl (82-101); Mean Platelet Volume 10.2 fL (7.4-10.4); Monocytes # 0.4 10^3/uL (0.2-0.9); Monocytes % 4.7 %; Neutrophils # 6.42 10^3/uL (1.8-7.7); Neutrophils % 75.3 %; Nucleated Red Blood Cells % 0 %; Platelet Count 211 10^3/cmm (157-399); Red Blood Count 4.92 10^6/uL (3.85-5.65); Red Cell Distribution Width 12.1 % (12.1-15.1); White Blood Count 8.53 10^3/uL (3.29-11.43)
[2022-12-01 08:04] LABS: Alanine Aminotransferase 24 U/L (0-41); Albumin Level 4.5 g/dL (3.5-5.2); Alkaline Phosphatase 100 U/L (40-130); Aspartate Amino Transferase 21 U/L (0-40); Blood Urea Nitrogen 8 mg/dL (6-20); Calcium 9.1 mg/dL (8.5-10.5); Carbon Dioxide 29 mmol/L (22-29); Chloride 103 mmol/L (98-107); Globulin 2.4 g/dL (1.3-4.6); Glomerular Filtration Rate 92.6 mL/min (90-130); Glucose 100 mg/dL (65-115); Osmolality Calculated 288 mOsm/kg (285-295); Sodium 140 mmol/L (136-145); Total Bilirubin 0.5 mg/dL (0.15-1.2); Total Protein 6.9 g/dL (6.6-8.7)
[2022-12-01 08:10] LABS: Acetaminophen < 5.0 ug/mL (10-30); Salicylate < 0.3 mg/dL (3-10)
[2022-12-01 12:17] VITALS: BP 132/91; PULSE 106; RESP 14; O2SAT 97
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
== END 2022-12-01 12:19 | disposition home or self-care (01) ==
PROVIDERS: Emergency Provider Family Medicine; PCP Family Medicine
DX: F63.9 Impulse disorder, unspecified (principal); G31.84 Mild cognitive impairment of uncertain or unknown etiology; F17.290 Nicotine dependence, other tobacco product, uncomplicated
CPT/HCPCS: 36415; 80053; 80307; 85025; 99283

== ENCOUNTER 2022-12-01 16:12 | Emergency (ER) | payer MEDICAID, SELFPAY ==
--- NOTE | 2022-12-01 16:19 | W.ED.PSYCHS ---
HPI - Psych General: Chief Complaint: Psychiatric Symptoms Stated Complaint: MHE Time Seen by Provider: 12/01/22 16:16 Source: patient Mode of arrival: ambulatory History of Present Illness: 22-year-old male was seen earlier today has a history of autism and explosive outburst. He was seen earlier today he had had some outbursts at home but he was calm. We had Dr. Dumont evaluate him did not feel he needed to be admitted. They recommended that he go to crisis stabilization where they would start Invega injections. He did not follow through on this family get a 96-hour hold and return to the emergency room. He has not had any further outbursts he is cooperative and agreeable his dad brought him to the emergency room today. We have been made aware that he would be coming back on a court ordered 96-hour hold he filled out affidavits however there is no significant change from the complaint earlier today and has not had any further outburst since. He denies homicidal or suicidal ideation. Associated symptoms: Deny homicidal ideation or suicidal ideation Review of Systems Card: Denies: chest pain Resp: Denies: dyspnea GI: Denies: abdominal pain Psych: Denies: suicidal ideation or homicidal ideation [facility] ED PFSH: Medical History Psychiatric care Schizophrenia Social History Smoking and tobacco status: current every day smoker e-cigarettes E-Cigarette Details: vaporizer device Alcohol intake: current Alcohol intake frequency: 0-2 Drinks per Day Alcohol type: hard liquor Substance/Drug Use: current Substance/Drug use frequency: daily Physical Exam Const: COMMON NORMALS: no acute distress GENERAL APPEARANCE: cooperative and comfortable ORIENTATION/CONSCIOUSNESS: Yes awake, Yes oriented to person, Yes oriented to place and Yes oriented to time Neuro: SENSORIUM/ORIENTATION: Yes oriented to person, Yes oriented to place and Yes oriented to time Course Vital Signs: Vital signs: Vital Signs Temperature 98.7 F 12/01/22 16:20 Pulse Rate 110 H 12/01/22 16:20 Respiratory Rate 18 12/01/22 16:20 Blood Pressure 130/90 12/01/22 16:20 Pulse Oximetry 98 12/01/22 16:20 Oxygen Delivery Me thod Room Air 12/01/22 16:20 MDM - Psych Medical Decision Making Well behaved at this time he had no further aspirate since he was discharged this morning. Unfortunately has not gone to crisis stabilization to follow through on the plan Dr. Dumont had established. Patient denies suicidal or homicidal ideation at this point. Dr. Dumont returned to see the patient. He still does not recommend admission at this point. He does recommend since we are not able to get the shot anymore today the following: Seroquel 100 mg p.o. x1 now and Invega 6 mg p.o. The family should return to the patient to crisis stabilization tomorrow for the Invega injection. Should also call to behavioral health to schedule follow-up. Medical Records I reviewed the patient's medical records. Lab Data I reviewed the patient's lab results. No radiology studies performed this visit Discharge Plan Discharge Patient Disposition: Home Clinical Impression: Impulse control disorder, Mild cognitive impairment, Intermittent explosive disorder in adult Condition: Stable Prescriptions: No Action Invega Sustenna 234 mg/1.5 mL syringe 234 mg IM ONCE Qty: 1.5 0RF Invega Sustenna 156 mg/mL syringe 156 mg IM Q30D Qty: 1 2RF Rx Instructions: Give IM to deltoid loading dose in 1 week and then as directed IM Discharge Orders: Discharge ED (Routine); Ordered 12/01/22 Ordered By: Alexis Sarabia Referrals: Ananth Rivera MD [Primary Care Provider] - Discharge Diet: Usual diet Discharge Activity: Increase activity as tolerated Patient Instructions: Opioid Safety, Pain Management Activity Restrictions/Additional Instructions: You are given 100 mg of Seroquel and 6 mg of Invega. Tomorrow you should return to the crisis stabilization unit for the injection of Invega as previously recommended. They will help assist with future management of the Invega injections. He should also be seen at [facility] contact them for the next appointment. Coding Level of Care Code ED Senior Devops Engineer for Leonarda Kumar
[2022-12-01 16:20] VITALS: BP 130/90; PULSE 110; RESP 18; TEMP 37.1; O2SAT 98; BMI 35.0
[2022-12-01] MEDS: quetiapine 100 mg Tablet PO (18:30)
[2022-12-01] MEDS: paliperidone ER 6 mg Tablet PO (18:30)
--- NOTE | 2022-12-01 19:09 | PC.NURSE ---
Report received from LA NENA Shi at this time.
--- NOTE | 2022-12-01 20:06 | PC.NURSE ---
Was explained to this nurse by daysmsft nurse LA NENA Shi and LA NENA Robertson that patient was unsafe to be discharged to waiting room without ride, according to hospital psychiatrist. Patient to be discharged home via [facility].
== END 2022-12-01 21:22 | disposition home or self-care (01) ==
PROVIDERS: Emergency Provider Family Medicine; PCP Family Medicine
DX: F63.9 Impulse disorder, unspecified (principal); G31.84 Mild cognitive impairment of uncertain or unknown etiology; F63.81 Intermittent explosive disorder; F84.0 Autistic disorder; F17.290 Nicotine dependence, other tobacco product, uncomplicated
CPT/HCPCS: 99283

== ENCOUNTER 2023-01-14 14:23 | Emergency (ER) | payer MEDICAID, SELFPAY ==
[2023-01-14 14:29] VITALS: BMI 34.9
[2023-01-14 14:31] VITALS: BP 135/80; PULSE 125; RESP 16; TEMP 36.6; O2SAT 92
[2023-01-14 14:54] LABS: Basophils % 0.5 %; Eosinophils # 0.1 10^3/uL (0.0-0.8); Eosinophils % 1.6 %; Hematocrit 47.8 % (37-53); Lymphocytes # 2.6 10^3/uL (0.8-4.8); Lymphocytes % 34.6 %; Mean Corpuscular HGB Conc 35.1 g/dL (30-55); Mean Corpuscular Hemoglobin 31.8 pg (27-33); Mean Corpuscular Volume 90.4 fl (82-101); Mean Platelet Volume 10.6 fL (7.4-10.4); Monocytes # 0.5 10^3/uL (0.2-0.9); Monocytes % 6.7 %; Neutrophils # 4.26 10^3/uL (1.8-7.7); Neutrophils % 56.3 %; Nucleated Red Blood Cells % 0 %; Platelet Count 200 10^3/cmm (157-399); Red Blood Count 5.29 10^6/uL (3.85-5.65); Red Cell Distribution Width 11.7 % (12.1-15.1); White Blood Count 7.57 10^3/uL (3.29-11.43)
--- NOTE | 2023-01-14 14:54 | ECG_ITS ---
[facility] Test Date: 2023-01-14 Pat Name: Duarte Joyce Department: Room: Gender: Male Flatbed Stitcher: : 2000 Requested By: Alexis Bacon Order Number: [id number] Dariusz MD: Lou Juan M.D. Measurements Intervals [place] Rate: 125 P: 28 HI: 141 QRS: 13 QRSD: 98 T: 29 QT: 314 QTc: 454 Interpretive Statements SINUS TACHYCARDIA MINIMAL VOLTAGE CRITERIA FOR LVH, CONSIDER NORMAL VARIANT [MEETS CRITERIA IN ONE OF: R(aVL), S(V1), R(V5), R(V5/V6)+S(V1)] ABNORMAL RHYTHM ECG INTERPRETATION BASED ON A DEFAULT AGE OF 40 YEARS Compared to ECG 04/03/2022 03:27:37 Sinus rhythm no longer present Sinus arrhythmia no longer present T-wave abnormality no longer present Electronically Signed On 01-15-2023 21:53:51 COMMUNICATION ELECTRONIC TECHNICIAN by Lou Juan M.D. [email or web address]
[2023-01-14 14:56] LABS: Blood Gas Allen Test Pos; Blood Gas Operator Identificat CAK; Blood Gas Sample Type Arterial; Ionized Calcium Level - ABG 1.2 mmol/L (1.1-1.4); PO2 FiO2 Ratio Arterial Blood 0
[2023-01-14 15:01] LABS: Amphetamines Screen Urine Negative (Negative); Barbiturates Screen Urine Negative (Negative); Benzodiazepines Screen Urine Negative (Negative); Cocaine Screen Urine Negative (Negative); Opiate Screen Urine Negative (Negative); PCP Screen Urine Negative (Negative); THC Screen Urine Positive (Negative)
[2023-01-14 15:05] LABS: ABG PCO2 43.1 mmHg (35-45); ABG PH Result 7.37 (7.35-7.45); Alveolar-Arterial Oxygen Gradi 3.3 mmHg (5-10); Arterial Blood Gas Hematocrit 50.8 % (42-52); Base Excess ABG -0.6 mmol/L (-2.0-2.0); Blood Gas Sample Site Brachial, left; HCO3 ABG 24.9 mmol/L (22-26); HGB O2 Sat 93.9 % (95-100); Methemoglobin 0.3 % (0.4-1.5); Oxygen Saturation ABG 95.1; PO2 ABG 71.6 mmHg (80.0-100.0); Potassium Level - ABG 3.3 mmol/L (3.5-5.0); Total Hemoglobin 16.6 g/dL (14-18)
[2023-01-14 15:06] LABS: Oxygen Device ROOM AIR
[2023-01-14 15:13] LABS: Alanine Aminotransferase 51 U/L (0-41); Albumin Level 4.8 g/dL (3.5-5.2); Alkaline Phosphatase 109 U/L (40-130); Aspartate Amino Transferase 26 U/L (0-40); Blood Urea Nitrogen 9 mg/dL (6-20); Calcium 9.7 mg/dL (8.5-10.5); Carbon Dioxide 23 mmol/L (22-29); Chloride 101 mmol/L (98-107); Globulin 2.9 g/dL (1.3-4.6); Glucose 118 mg/dL (65-115); Osmolality Calculated 288 mOsm/kg (285-295); Sodium 139 mmol/L (136-145); Total Bilirubin 0.6 mg/dL (0.15-1.2); Total Protein 7.7 g/dL (6.6-8.7)
[2023-01-14 15:15] LABS: Acetaminophen < 5.0 ug/mL (10-30); Salicylate < 0.3 mg/dL (3-10)
--- NOTE | 2023-01-14 15:20 | ED_ITS ---
HPI - Altered Mental Status General: Chief Complaint: Altered Mental Status Stated Complaint: AMS Time Seen by Provider: 01/14/23 14:30 Source: patient and EMS Mode of arrival: EMS History of Present Illness: 22-year-old male presents to the emergency room after ingesting an edible THC product. After which patient is nonresponsive for a time he is stable and in no respiratory distress he is somewhat tachypneic he is initially difficult to arouse at all even with painful stimuli. Later in the visit he did spontaneously wake up removed all of his monitors and was found by the nurse to be sitting in the chair in the room. Patient denies any pain or discomfort at this time. MD complaint: altered mental status Review of Systems Const: Denies: fever(s) or chills Card: Denies: chest pain Resp: Denies: dyspnea GI: Denies: abdominal pain : Denies: dysuria, urinary frequency or urinary urgency Musc: Denies: neck pain or back pain Skin/Breast: Denies: rash PFSH ED PFSH: Medical History Psychiatric care Schizophrenia Social History Smoking and tobacco/nicotine status: current every day tobacco/nicotine user e- cigarettes E-Cigarette Details: vaporizer device Alcohol intake: current Alcohol intake frequency: 0-2 Drinks per Day Alcohol type: hard liquor Substance/Drug Use: current Substance/Drug use frequency: daily Physical Exam Const: GENERAL APPEARANCE: cooperative and comfortable ORIENTATION/CONSCIOUSNESS: Yes awake HENMT: COMMON NORMALS: normocephalic, atraumatic and hearing grossly normal bilaterally HEAD & SCALP: normocephalic and atraumatic Resp: COMMON NORMALS: normal respiratory effort, No retractions, No use of accessory muscles and clear to auscultation bilaterally AUSCULTATION: clear to auscultation bilaterally Cardio: COMMON NORMALS: regular rate, regular rhythm and No murmurs present (Cardio) RATE: regular rate RHYTHM: regular rhythm GI: COMMON NORMALS: Soft to palpation and No hepatosplenomegaly present AUSCULTATION: Yes normoactive bowel sounds PALPATION: Yes Soft to palpation, No Tenderness to palpation present (GI), No Guarding due to palpation present (GI) and Yes No hepatosplenomegaly present Extremity: COMMON NORMALS: normal to inspection, capillary refill normal, no clubbing, cyanosis or edema, no calf tenderness and no pedal edema Skin: COMMON NORMALS: no rashes or lesions noted GENERAL SKIN EXAM: no rashes or lesions noted Course Vital Signs: Vital signs: Vital Signs Temperature 97.9 F 01/14/23 14:31 Pulse Rate 109 H 01/14/23 15:47 Respiratory Rate 17 01/14/23 15:47 Blood Pressure 121/82 01/14/23 15:47 Pulse Oximetry 100 01/14/23 15:47 Oxygen Delivery Me thod Room Air 01/14/23 15:44 MDM - Altered Mental Status Medical Decision Making Initially presented lethargic and nonresponsive this resolved spontaneously. Laboratory test reviewed he is test positive for marijuana which correlates well with the history given the remainder of his labs are unremarkable. He is awake and alert and oriented appropriately now we will discharge patient home encouraged discouraged from continued marijuana use Medical Records I reviewed the patient's medical records. Lab Data I reviewed the patient's lab results. 01/14/23 14:46 01/14/23 14:46 Laboratory Results WBC 7.57 10^3/uL (3.29-11.43) 01/14/23 14:46 RBC 5.29 10^6/uL (3.85-5.65) 01/14/23 14:46 Hgb 16.80 g/dL (11.27-16.99) 01/14/23 14:46 Hct 47.8 % (37-53) 01/14/23 14:46 MCV 90.4 fl (82-101) 01/14/23 14:46 MCH 31.8 pg (27-33) 01/14/23 14:46 MCHC 35.1 g/dL (30-55) 01/14/23 14:46 RDW 11.7 % (12.1-15.1) L 01/14/23 14:46 Plt Count 200 10^3/cmm (157-399) 01/14/23 14:46 MPV 10.6 fL (7.4-10.4) H 01/14/23 14:46 Neut % (Auto) 56.3 % 01/14/23 14:46 Lymph % (Auto) 34.6 % 01/14/23 14:46 Wirt % (Auto) 6.7 % 01/14/23 14:46 Eos % (Auto) 1.6 % 01/14/23 14:46 Baso % (Auto) 0.5 % 01/14/23 14:46 Neut # (Auto) 4.26 10^3/uL (1.8-7.7) 01/14/23 14:46 Lymph # (Auto) 2.6 10^3/uL (0.8-4.8) 01/14/23 14:46 Wirt # (Auto) 0.5 10^3/uL (0.2-0.9) 01/14/23 14:46 Eos # (Auto) 0.1 10^3/uL (0.0-0.8) 01/14/23 14:46 Baso # (Auto) 0.0 10^3/uL (0.0-0.1) 01/14/23 14:46 Nucleated RBC % (auto) 0 % 01/14/23 14:46 Nucleated RBCs # 0.0 /100WBC 01/14/23 14:46 Specimen Type Arterial 01/14/23 14:45 Sample Site Brachial, left 01/14/23 14:45 ABG pH 7.37 (7.35-7.45) 01/14/23 14:45 ABG pCO2 43.1 mmHg (35-45) 01/14/23 14:45 ABG pO2 71.6 mmHg (80.0-100.0) L 01/14/23 14:45 ABG PO2/FiO2 Ratio 0 01/14/23 14:45 ABG HCO3 24.9 mmol/L (22-26) 01/14/23 14:45 ABG O2 Saturation 95.1 01/14/23 14:45 ABG Base Excess -0.6 mmol/L (-2.0-2.0) 01/14/23 14:45 Rolan Test Pos 01/14/23 14:45 A-a O2 Gradient 3.3 mmHg (5-10) L 01/14/23 14:45 Hematocrit 50.8 % (42-52) 01/14/23 14:45 Hgb O2 Saturation 93.9 % (95-100) L 01/14/23 14:45 Carboxyhemoglobin 1.0 %THgb (0.4-20.1) 01/14/23 14:45 Methemoglobin 0.3 % (0.4-1.5) L 01/14/23 14:45 Total Hemoglobin 16.6 g/dL (14-18) 01/14/23 14:45 Sodium 141.0 mmol/L (131-143) 01/14/23 14:45 Potassium 3.3 mmol/L (3.5-5.0) L 01/14/23 14:45 Glucose 142.0 mg/dL (70-115) H 01/14/23 14:45 Ionized Calcium 1.2 mmol/L (1.1-1.4) 01/14/23 14:45 O2 Delivery Device Room air 01/14/23 14:45 FiO2 21.0 % 01/14/23 14:45 Aircraft Delivery Checker ID Cak 01/14/23 14:45 Sodium 139 mmol/L (136-145) 01/14/23 14:46 Potassium 3.0 mmol/L (3.5-5.1) L 01/14/23 14:46 Chloride 101 mmol/L (98-107) 01/14/23 14:46 Carbon Dioxide 23 mmol/L (22-29) 01/14/23 14:46 Anion Gap 18.0 (5-19) 01/14/23 14:46 BUN 9 mg/dL (6-20) 01/14/23 14:46 Creatinine 1.1 mg/dL (0.7-1.2) 01/14/23 14:46 GFR Calculation 83.0 mL/min (90-130) L 01/14/23 14:46 Glucose 118 mg/dL (65-115) H 01/14/23 14:46 Calculated Osmolality 288 mOsm/kg (285-295) 01/14/23 14:46 Calcium 9.7 mg/dL (8.5-10.5) 01/14/23 14:46 Total Bilirubin 0.6 mg/dL (0.15-1.2) 01/14/23 14:46 AST 26 U/L (0-40) 01/14/23 14:46 ALT 51 U/L (0-41) H 01/14/23 14:46 Alkaline Phosphatase 109 U/L (40-130) 01/14/23 14:46 Total Protein 7.7 g/dL (6.6-8.7) 01/14/23 14:46 Albumin 4.8 g/dL (3.5-5.2) 01/14/23 14:46 Globulin 2.9 g/dL (1.3-4.6) 01/14/23 14:46 Salicylates < 0.3 mg/dL (3-10) L 01/14/23 14:46 Urine Opiates Screen Negative ng/mL (Negative) 01/14/23 14:46 Acetaminophen < 5.0 ug/mL (10-30) L 01/14/23 14:46 Ur Barbiturates Screen Negative ng/mL (Negative) 01/14/23 14:46 Ur Phencyclidine Scrn Negative ng/mL (Negative) 01/14/23 14:46 Ur Amphetamines Screen Negative ng/mL (Negative) 01/14/23 14:46 U Benzodiazepines Scrn Negative ng/mL (Negative) 01/14/23 14:46 Urine Cocaine Screen Negative ng/mL (Negative) 01/14/23 14:46 U Marijuana (THC) Screen Positive ng/mL (Negative) H 01/14/23 14:46 No radiology studies performed this visit Discharge Plan Discharge Patient Disposition: Home Clinical Impression: 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 Please realize this is an emergency room and that we are providing you with a medical screening exam and this may not be complete and all inclusive of all the testing and or work up that you may need to determine your ailment or severity of your illness. It is very important that you follow up as instructed or that you return to the Emergency Department should you have concerns or if your condi tion changes or worsens in any way. You are seen today for an episode of altered mental status after ingestion of marijuana products. This resolved with time. Recommend abstaining from marijuana use Coding Level of Care Code ED Stripper Preliminary for Leonarda Kumar
[2023-01-14 15:44] VITALS: BP 121/82; PULSE 109; RESP 14; O2SAT 100
[2023-01-14 15:47] VITALS: BP 121/82; PULSE 109; RESP 17; O2SAT 100
== END 2023-01-14 15:48 | disposition home or self-care (01) ==
PROVIDERS: Emergency Provider Family Medicine; PCP Family Medicine
DX: R41.0 Disorientation, unspecified (principal); T50.995A Adverse effect of other drugs, medicaments and biological substances, initial encounter; F63.9 Impulse disorder, unspecified; F17.290 Nicotine dependence, other tobacco product, uncomplicated; X58.XXXA Exposure to other specified factors, initial encounter
CPT/HCPCS: 36600; 51701; 80051; 80053; 80306; 80307; 82330; 82805; 85025; 93005; 99284

== ENCOUNTER → 2023-03-21 15:45 | Outpatient (BNVA) | payer MEDICAID, SELFPAY | PROVIDERS: PCP Family Medicine; Visit Provider Nurse Practitioner | DX: F29 Unspecified psychosis not due to a substance or known physiological condition (principal); Z79.899 Other long term (current) drug therapy | CPT/HCPCS: 80061; 83036 ==

== ENCOUNTER → 2023-06-15 10:59 | Outpatient (BNVA) | payer MEDICAID, SELFPAY | PROVIDERS: PCP Family Medicine; Visit Provider Nurse Practitioner Psychiatric/Mental Health | DX: F29 Unspecified psychosis not due to a substance or known physiological condition (principal); Z79.899 Other long term (current) drug therapy; F63.81 Intermittent explosive disorder; F63.9 Impulse disorder, unspecified; R41.83 Borderline intellectual functioning | CPT/HCPCS: 80053; 80061 ==

== ENCOUNTER 2023-09-29 10:48 | Emergency (ER) | payer MEDICAID, SELFPAY ==
[2023-09-29 10:50] VITALS: BP 128/90; PULSE 138; TEMP 37; O2SAT 94; BMI 45.6
--- NOTE | 2023-09-29 10:57 | ECG_ITS ---
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 Measurements Intervals [place] Rate: 127 P: 27 WI: 145 QRS: 35 QRSD: 92 T: 61 QT: 324 QTc: 473 Interpretive Statements SINUS TACHYCARDIA NONSPECIFIC T-WAVE ABNORMALITY Compared to ECG 01/14/2023 14:54:48 T-wave abnormality now present Electronically Signed On 09-29-2023 17:34:38 CDT by Montrell Howard M.D. [email or web address]
[2023-09-29 11:19] LABS: Basophils # 0.1 10^3/uL (0.0-0.1); Basophils % 0.7 %; Charge for UA Resulting for Rev; Eosinophils % 0.5 %; Hematocrit 46.2 % (37-53); Lymphocytes # 1.6 10^3/uL (0.8-4.8); Lymphocytes % 21.8 %; Mean Corpuscular HGB Conc 35.9 g/dL (30-55); Mean Corpuscular Hemoglobin 32.4 pg (27-33); Mean Corpuscular Volume 90.1 fl (82-101); Mean Platelet Volume 10.4 fL (7.4-10.4); Monocytes # 0.6 10^3/uL (0.2-0.9); Monocytes % 8.8 %; Neutrophils # 4.95 10^3/uL (1.8-7.7); Neutrophils % 67.9 %; Nucleated Red Blood Cells % 0 %; Platelet Count 212 10^3/cmm (157-399); Red Blood Count 5.13 10^6/uL (3.85-5.65); Red Cell Distribution Width 12.4 % (12.1-15.1); White Blood Count 7.29 10^3/uL (3.29-11.43)
[2023-09-29 11:22] LABS: Bilirubin Urine Negative (Negative); Blood Urine Negative (Negative); Glucose Urine UA 2+ (Normal); Ketones Urine Trace (Negative); Leukocyte Esterase Urine Negative (Negative); Nitrate Urine Negative (Negative); Protein Urine 1+ (Negative); Specific Gravity, Urine 1.029 (1.005-1.030); Urine Appearance Turbid (CLEAR); Urine Color Dark Yellow (Yellow); pH Urine 5.5 (5-7)
[2023-09-29 11:27] VITALS: PULSE 121; O2SAT 93
[2023-09-29 11:35] LABS: Alanine Aminotransferase 57 U/L (0-41); Albumin Level 4.8 g/dL (3.5-5.2); Alkaline Phosphatase 109 U/L (40-130); Anion Gap 21.5 (5-19); Aspartate Amino Transferase 31 U/L (0-40); Blood Urea Nitrogen 7 mg/dL (6-20); Calcium 9.8 mg/dL (8.5-10.5); Carbon Dioxide 20 mmol/L (22-29); Chloride 103 mmol/L (98-107); Creatinine Clr Calc Pharmacy 170.9052; Glomerular Filtration Rate 103.7 mL/min (90-130); Glucose 153 mg/dL (65-115); Osmolality Calculated 293 mOsm/kg (285-295); Potassium 3.5 mmol/L (3.5-5.1); Sodium 141 mmol/L (136-145); Total Bilirubin 0.6 mg/dL (0.15-1.2); Total Protein 7.8 g/dL (6.6-8.7)
[2023-09-29 11:36] LABS: Alcohol Level < 10 mg/dL (0-10)
[2023-09-29 11:38] LABS: Troponin(5th) Baseline < 6 ng/L (0-15)
--- NOTE | 2023-09-29 11:49 | W.ED.NAVMDI ---
HPI - Nausea/Vomiting/Diarrhea General: Chief complaint: Nausea/Vomiting/Diarrhea Stated complaint: etoh. n/v Time Seen by Provider: 09/29/23 10:48 History of Present Illness: 23-year-old male presents emergency room reporting have been drinking heavily already today complaining of nausea vomiting vomited couple of times for a couple of weeks ago he threw up some blood no hematemesis or coffee-ground emesis today no hematochezia or melena. He is slightly tachycardic. No other complaints of pain. 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 Schizophrenia Psychiatric care Social History Smoking and tobacco/nicotine status: current every day tobacco/nicotine user e-cigarettes E-Cigarette Details: vaporizer device Alcohol intake: current Alcohol intake frequency: 0-2 Drinks per Day Alcohol type: hard liquor Substance/Drug Use: current Substance/Drug use frequency: daily Physical Exam Const: COMMON NORMALS: no acute distress GENERAL APPEARANCE: cooperative and comfortable ORIENTATION/CONSCIOUSNESS: Yes awake, Yes oriented to person, Yes oriented to place and Yes oriented to time HENMT: COMMON NORMALS: normocephalic, atraumatic and hearing grossly normal bilaterally HEAD & SCALP: normocephalic and atraumatic Resp: COMMON NORMALS: normal respiratory effort, No retractions, No use of accessory muscles and clear to auscultation bilaterally AUSCULTATION: clear to auscultation bilaterally Cardio: COMMON NORMALS: regular rate, regular rhythm and No murmurs present (Cardio) RATE: regular rate RHYTHM: regular rhythm GI: COMMON NORMALS: Soft to palpation and No hepatosplenomegaly present AUSCULTATION: Yes normoactive bowel sounds PALPATION: Yes Soft to palpation, No Tenderness to palpation present (GI), No Guarding due to palpation present (GI) and Yes No hepatosplenomegaly present Extremity: COMMON NORMALS: normal to inspection, capillary refill normal, no clubbing, cyanosis or edema, no calf tenderness and no pedal edema Neuro: SENSORIUM/ORIENTATION: Yes oriented to person, Yes oriented to place and Yes oriented to time Skin: COMMON NORMALS: no rashes or lesions noted GENERAL SKIN EXAM: no rashes or lesions noted Course Vital Signs: Vital signs: Vital Signs Temperature 98.6 F 09/29/23 10:50 Pulse Rate 108 H 09/29/23 14:00 Blood Pressure 128/90 09/29/23 10:50 Pulse Oximetry 95 09/29/23 11:57 MDM - Nausea/Vomiting/Diarrhea Medical Decision Making No significant normalities patient was little tachycardic improved with fluids he is feeling much better. Encouraged him to avoid alcohol discharge patient home on Protonix and follow-up with his primary care doctor return if has further problems. Lab Data 09/29/23 11:10 09/29/23 11:10 Radiology Impressions Abdomen/Pelvis CT 09/29/23 11:52 IMPRESSION: 1. Hepatomegaly with diffuse fatty infiltration of the liver. 2. Splenomegaly. 3. Air-fluid level in the stomach. 4. Lung bases are well aerated. 5. No other acute findings. Laboratory Results WBC 7.29 10^3/uL (3.29-11.43) 09/29/23 11:10 RBC 5.13 10^6/uL (3.85-5.65) 09/29/23 11:10 Hgb 16.60 g/dL (11.27-16.99) 09/29/23 11:10 Hct 46.2 % (37-53) 09/29/23 11:10 MCV 90.1 fl (82-101) 09/29/23 11:10 MCH 32.4 pg (27-33) 09/29/23 11:10 MCHC 35.9 g/dL (30-55) 09/29/23 11:10 RDW 12.4 % (12.1-15.1) 09/29/23 11:10 Plt Count 212 10^3/cmm (157-399) 09/29/23 11:10 MPV 10.4 fL (7.4-10.4) 09/29/23 11:10 Neut % (Auto) 67.9 % 09/29/23 11:10 Lymph % (Auto) 21.8 % 09/29/23 11:10 Grady % (Auto) 8.8 % 09/29/23 11:10 Eos % (Auto) 0.5 % 09/29/23 11:10 Baso % (Auto) 0.7 % 09/29/23 11:10 Neut # (Auto) 4.95 10^3/uL (1.8-7.7) 09/29/23 11:10 Lymph # (Auto) 1.6 10^3/uL (0.8-4.8) 09/29/23 11:10 Grady # (Auto) 0.6 10^3/uL (0.2-0.9) 09/29/23 11:10 Eos # (Auto) 0.0 10^3/uL (0.0-0.8) 09/29/23 11:10 Baso # (Auto) 0.1 10^3/uL (0.0-0.1) 09/29/23 11:10 Nucleated RBC % (auto) 0 % 09/29/23 11:10 Nucleated RBCs # 0.0 /100WBC 09/29/23 11:10 Sodium 141 mmol/L (136-145) 09/29/23 11:10 Potassium 3.5 mmol/L (3.5-5.1) 09/29/23 11:10 Chloride 103 mmol/L (98-107) 09/29/23 11:10 Carbon Dioxide 20 mmol/L (22-29) L 09/29/23 11:10 Anion Gap 21.5 (5-19) H 09/29/23 11:10 BUN 7 mg/dL (6-20) 09/29/23 11:10 Creatinine 0.9 mg/dL (0.7-1.2) 09/29/23 11:10 GFR Calculation 103.7 mL/min (90-130) 09/29/23 11:10 Glucose 153 mg/dL (65-115) H 09/29/23 11:10 Calculated Osmolality 293 mOsm/kg (285-295) 09/29/23 11:10 Calcium 9.8 mg/dL (8.5-10.5) 09/29/23 11:10 Total Bilirubin 0.6 mg/dL (0.15-1.2) 09/29/23 11:10 AST 31 U/L (0-40) 09/29/23 11:10 ALT 57 U/L (0-41) H 09/29/23 11:10 Alkaline Phosphatase 109 U/L (40-130) 09/29/23 11:10 Troponin T Baseline < 6 ng/L (0-15) 09/29/23 11:10 Troponin T 120 Minute 6.00 ng/L (0-15) 09/29/23 13:20 Delta Troponin T 0.67047 ABS# (0-10) 09/29/23 13:20 Total Protein 7.8 g/dL (6.6-8.7) 09/29/23 11:10 Albumin 4.8 g/dL (3.5-5.2) 09/29/23 11:10 Globulin 3.0 g/dL (1.3-4.6) 09/29/23 11:10 Urine Color Dark yellow (Yellow) A 09/29/23 11:10 Urine Appearance Turbid (CLEAR) A 09/29/23 11:10 Urine pH 5.5 (5-7) 09/29/23 11:10 Ur Specific [place] 1.029 (1.005-1.030) 09/29/23 11:10 Urine Protein 1+ (Negative) A 09/29/23 11:10 Urine Glucose (UA) 2+ (Normal) H 09/29/23 11:10 Urine Ketones Trace (Negative) 09/29/23 11:10 Urine Blood Negative (Negative) 09/29/23 11:10 Urine Nitrate Negative (Negative) 09/29/23 11:10 Urine Bilirubin Negative (Negative) 09/29/23 11:10 Urine Urobilinogen 1.0 mg/dL (Negative) 09/29/23 11:10 Ur Leukocyte Esterase Negative (Negative) 09/29/23 11:10 Urine RBC 0-2 /hpf (0-2) 09/29/23 11:10 Urine WBC 0-5 /hpf (0-5) 09/29/23 11:10 Ur Squamous Epith Cells 0-5 /hpf (0-5) 09/29/23 11:10 Amorphous Sediment Not Reportable 09/29/23 11:10 Urine Bacteria None seen /hpf (NONE) 09/29/23 11:10 Hyaline Casts 0-4 /lpf H 09/29/23 11:10 Urine Opiates Screen Negative ng/mL (Negative) 09/29/23 11:10 Ur Barbiturates Screen Negative ng/mL (Negative) 09/29/23 11:10 Ur Phencyclidine Scrn Negative ng/mL (Negative) 09/29/23 11:10 Ur Amphetamines Screen Negative ng/mL (Negative) 09/29/23 11:10 U Benzodiazepines Scrn Negative ng/mL (Negative) 09/29/23 11:10 Urine Cocaine Screen Negative ng/mL (Negative) 09/29/23 11:10 U Marijuana (THC) Screen Negative ng/mL (Negative) 09/29/23 11:10 Ethyl Alcohol < 10 mg/dL (0-10) 09/29/23 11:10 All radiology interpretation(s) finalized by discharge Discharge Plan Discharge Patient Disposition: Home Clinical Impression: Gastroesophageal reflux disease Condition: Stable Prescriptions: New Protonix 40 mg tablet,delayed release (DR/EC) 40 mg PO DAILY Qty: 40 0RF Rx Instructions: 1 p.o. twice daily for 10 days then 1 p.o. daily No Action Invega Trinza 546 mg/1.75 mL syringe 1.75 mg IM .[id number] Discharge Orders: Discharge ED (Routine); Ordered 09/29/23 Ordered By: Alexis Sarabia Referrals: Ananth Rivera MD [Primary Care Provider] - Discharge Diet: As Directed Discharge Activity: Increase activity as tolerated Patient Instructions: Opioid Safety, Pain Management Activity Restrictions/Additional Instructions: Thank you for choosing [facility] for your healthcare needs today. It is very important that you follow up as instructed or that you return to the Emergency Department should you have concerns or if your condition changes or worsens in any way. You were seen today with complaints of chest discomfort vomiting and abdominal pain. Cardiac enzymes are negative your heart rate was slightly elevated but improved with fluids. Will discharge you home recommend that you start Protonix 1 tablet twice a day for 10 days and 1 tablet daily. Coding Level of Care Code ED Labor Contractor for Leonarda Kumar
--- NOTE | 2023-09-29 11:52 | CT_ITS ---
WS: [id number] CT ABDOMEN PELVIS TECHNIQUE: Contrast-enhanced CT of the abdomen and pelvis with coronal and sagittal reformatted image s. CLINICAL INFORMATION: abd pain COMPARISON: None. DLP: 1148.[address] scans at [facility] use at least one of these dose optimization techniques: automated e xposure control; mA and/or kV adjustment per patient size (includes targeted exams where dose is matc hed to clinical indication); or iterative reconstruction. FINDINGS: Hepatomegaly. Diffuse fatty infiltration of the liver. Splenomegaly. Portal vein and splenic vein are patent. Low-attenuation lesion in the spleen measuring 10 mm likely cyst or hemangioma. Normal GE ju nction. Air-fluid level in the stomach. Lung bases are well aerated. Fatty atrophy of the pancreas. N ormal caliber abdominal aorta. Celiac and SMA are patent. Adrenal glands are normal. Normal renal par enchymal enhancement. No hydronephrosis. Tiny fat-containing umbilical hernia. Normal gallbladder. Normal sigmoid colon. Normal appendix in th e RIGHT lower quadrant. No evidence of acute appendicitis. CT/CT abdomen pelvis w con* [id number] IMPRESSION: 1. Hepatomegaly with diffuse fatty infiltration of the liver. 2. Splenomegaly. 3. Air-fluid level in the stomach. 4. Lung bases are well aerated. 5. No other acute findings.
[2023-09-29] MEDS: lidocaine 2% viscous 15 ML, aluminum-mag hydrox-simethicon 30 ML, sucralfate oral liq 1 GM PO (11:55)
[2023-09-29 11:57] VITALS: PULSE 122; O2SAT 95
[2023-09-29 12:02] LABS: Bacteria Urine None Seen /hpf; Hyaline Casts Urine 0-4 /lpf; RBC Urine 0-2 /hpf (0-2); Squamous Epithelial Cell Urine 0-5 /hpf (0-5); WBC Urine 0-5 /hpf (0-5)
[2023-09-29] MEDS: iohexol 350 mg/mL 500 mL Btl (per mL) IV (12:10)
--- NOTE | 2023-09-29 12:34 | ECG_ITS ---
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 Measurements Intervals [place] Rate: 116 P: 32 IA: 153 QRS: 22 QRSD: 96 T: 24 QT: 317 QTc: 440 Interpretive Statements SINUS TACHYCARDIA NONSPECIFIC T-WAVE ABNORMALITY Compared to ECG 09/29/2023 10:57:30 No significant changes Electronically Signed On 09-29-2023 17:35:31 CDT by Montrell Howard M.D. [id number]
[2023-09-29] MEDS: sodium chloride 0.9% 1,000 ML 999 ML IV (12:55)
[2023-09-29 13:00] VITALS: PULSE 113
[2023-09-29 13:12] LABS: Amphetamines Screen Urine Negative (Negative); Barbiturates Screen Urine Negative (Negative); Benzodiazepines Screen Urine Negative (Negative); Cocaine Screen Urine Negative (Negative); Opiate Screen Urine Negative (Negative); PCP Screen Urine Negative (Negative); THC Screen Urine Negative (Negative)
[2023-09-29 13:43] LABS: Troponin 5 2HR Delta 0.00001 ABS# (0-10)
[2023-09-29 14:00] VITALS: PULSE 108
== END 2023-09-29 14:33 | disposition home or self-care (01) ==
PROVIDERS: Emergency Provider Family Medicine; PCP Family Medicine
DX: K21.9 Gastro-esophageal reflux disease without esophagitis (principal); F17.290 Nicotine dependence, other tobacco product, uncomplicated
CPT/HCPCS: 36415; 74177; 80053; 80306; 80307; 81003; 81015; 84484; 85025; 93005; 99285; J7030; Q9967

== ENCOUNTER → 2024-09-27 09:51 | Outpatient (BNVA) | payer OTHER, SELFPAY | PROVIDERS: PCP Family Medicine; Visit Provider Nurse Practitioner | DX: Z79.899 Other long term (current) drug therapy (principal) | CPT/HCPCS: 80053; 80061; 83036; 85025 ==